=== PATIENT | male | born 1995 | race African-American/Black ===

== ENCOUNTER 2020-09-06 09:35 | Emergency (ER) | payer BC ==
[~2020-09-06] VITALS: Ht 188 cm; Wt 133.8 kg
[2020-09-06 10:17] LABS: ABSOLUTE NEUTROPHILS 11.1 thou/uL (1.4-8.2); BASOPHILS 0.4 % (0.0-2.0); EOSINOPHILS 1.2 % (0.0-3.0); HEMATOCRIT 50.4 % (42.0-52.0); LYMPHOCYTES 11.7 % (24.0-44.0); MCHC 33.8 g/dL (28.0-37.0); MCV 91.7 fL (80.0-100.0); MONOCYTES 6.5 % (1.0-8.0); PLATELET COUNT 228 thou/uL (150-400); POLYS 80.2 % (36.0-66.0); RDW 13.8 % (10.5-14.5); WBC 13.8 thou/uL (4.0-11.0)
[2020-09-06 10:30] LABS: CALCIUM 9.4 mg/dL (8.5-10.1); CREATININE 1.5 mg/dL (0.7-1.3)
[2020-09-06 10:36] LABS: ALBUMIN 3.7 g/dL (3.4-5.0); TOTAL BILIRUBIN 1.7 mg/dL (0.2-1.0); TOTAL PROTEIN 8.3 g/dL (6.4-8.2)
[2020-09-06] MEDS ORDERED: ZOFRAN ODT4 MG PO (12:32)
[2020-09-06 12:40] VITALS: BP 170/92
[2020-09-06] MEDS ORDERED: MOBIC15 MG PO (13:30)
== END 2020-09-06 12:48 | disposition home or self-care (01) ==
LOC: ER 09:35
PROVIDERS: Emergency Medicine
DX: K85.90 Acute pancreatitis without necrosis or infection, unspecified (principal); R10.13 Epigastric pain